=== PATIENT | male | born 1980 | race Caucasian/White ===

== ENCOUNTER → 2018-12-14 | Outpatient (REF) | payer OTHER ==
[~2018-12-14] MED LIST: ASC500 PO; CLIN-1 PO; DIA5 PO; DOCU-416 PO; GAB300 PO; IBU800 PO; MULT-1203 PO; NO CURRENT MEDS; OND4 PO; OXYC-854 PO; PER PO; TRAM100T22 PO
[2018-12-14 10:59] LABS: PLATELET COUNT, AUTOMATED 212 K/uL (150-450)
== END ==
LOC: ZZSTITCHES 10:45
PROVIDERS: ATTEND Physician Assistant
DX: R07.9 Chest pain, unspecified (principal); R06.02 Shortness of breath
CPT/HCPCS: 82040; 82247; 82310; 82374; 82435; 82565; 82947; 84075; 84132; 84155; 84295; 84443; 84450; 84460; 84484; 84520; 85025; 85379